=== PATIENT | male | born 1970 | race Caucasian/White ===

== ENCOUNTER 2017-08-05 09:30 | Emergency (ER) | payer OTHER ==
[~2017-08-05] VITALS: Ht 180.3 cm; Wt 102.1 kg
--- NOTE | 2017-08-05 10:26 | ED GI/GU/ABDOMINAL COMPLAINT ---
History of Present Illness General Chief Complaint: Chest Pain Stated Complaint: CP Source: patient, old records Exam Limitations: no limitations Vital Signs & Intake/Output Vital Signs & Intake/Output Vital Signs Date Time Temp Pulse Resp B/P B/P Pulse O2 O2 Flow FiO2 Mean Ox Delivery Rate 08/05 1400 98.7 64 18 136/86 97 Room Air 08/05 0947 99 Room Air 08/05 0934 96.9 65 18 150/90 99 Room Air Allergies Coded Allergies: NO KNOWN ALLERGIES (08/05/17) Triage Note: C/O CHEST PAIN IN CENTER OF CHEST WITH HEARTBURN AND VOMITING SINCE 299, WITH SOB. Triage Nurses Notes Reviewed? yes Onset: Morning Duration: hour(s):, constant, continues in ED Timing: recent history Quality/Severity: aching, moderate, severe, vomiting Location: epigastric Radiation: chest Activities at Onset: sleep Prior Abdominal Problems: similar symptoms Past Sexual History: Unobtainable at this time No Modifying Factors: none Associated Symptoms: abdominal pain, chest pain, diarrhea, loss of appetite, nausea/vomiting HPI: 4 hours prior to admission patient awoke with tight epigastric pain radiating to his chest associated with nausea vomiting diarrhea. He also had shortness of breath diaphoresis. He denies fever chills cough headache dysuria rash bleeding. He has had previous episodes but never this severe or prolonged. Past History Travel History Traveled to [place] past 21 day No Medical History Any Pertinent Medical History? see below for history EENT: NONE Cardiovascular: NONE Respiratory: asthma Gastrointestinal: NONE Hepatic: NONE Renal: NONE Musculoskeletal: NONE Psychiatric: NONE Endocrine: NONE Surgical History Surgical History: non-contributory Psychosocial History What is your primary language Azeri Tobacco Use: Current Not Daily ETOH Use: occasional use Family History Hx Contributory? No Review of Systems Review of Systems Constitutional: Reports: see HPI, diaphoresis. EENTM: Reports: no symptoms. Respiratory: Reports: no symptoms. Cardiovascular: Reports: see HPI, chest pain. GI: Reports: see HPI, abdominal pain, diarrhea, nausea, vomiting. Genitourinary: Reports: no symptoms. Musculoskeletal: Reports: no symptoms. Skin: Reports: no symptoms. Neurological/Psychological: Reports: no symptoms. Hematologic/Endocrine: Reports: no symptoms. Immunologic/Allergic: Reports: no symptoms. All Other Systems: Reviewed and Negative Physical Exam Physical Exam General Appearance: well developed/nourished, alert, awake, anxious, severe distress, obese Head: atraumatic, normal appearance Eyes: Bilateral: normal appearance, PERRL, EOMI, normal inspection. Ears, Nose, Throat, Mouth: hearing grossly normal, moist mucous membrane Neck: normal inspection, supple, full range of motion, normal alignment, no midline tenderness Respiratory: normal breath sounds, chest non-tender, no respiratory distress, quiet respiration, lungs clear Cardiovascular: regular rate/rhythm, normal peripheral pulses, norml femoral pulses equa Peripheral Pulses: 4+ carotid (R), 4+ carotid (L) Gastrointestinal: normal bowel sounds, soft, non-tender, no organomegaly Male Genitals: normal genitalia Back: normal inspection, normal range of motion, no vertebral tenderness Extremities: normal range of motion, no ligament instability Neurologic/Psych: no motor/sensory deficits, awake, alert, oriented x 3, normal gait, normal mood/affect, 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 No Sepsis Present: No Sepsis Focused Exam Completed? No Progress Differential Diagnosis: biliary colic, gastritis, pancreatitis, PUD/GERD Plan of Care: Orders Procedure Date/time Status TROPONIN LEVEL 08/05 1345 Complete RAPID VIRAL INFLUENZA A 08/05 1027 Complete TROPONIN LEVEL 08/05 0954 Complete MAGNESIUM 08/05 0954 Complete LIPASE 08/05 0954 Complete HIGH SENSITIVITY CRP 08/05 0954 Complete COMPREHENSIVE METABOLIC PANEL 08/05 0954 Complete CBC WITHOUT DIFFERENTIAL 08/05 0954 Complete EKG 08/05 0931 Active Laboratory Tests 08/05/17 1402: Troponin I < 0.01 08/05/17 1044: Anion Gap 13, Estimated GFR > 60, BUN/Creatinine Ratio 20.0, Glucose 133 H, Calcium 9.6, Magnesium 1.9, Total Bilirubin 1.2, AST 26, ALT 36, Alkaline Phosphatase 79, Troponin I < 0.01, C-React Prot High Sens 0.6 L, Total Protein 7.4, Albumin 4.6, Globulin 2.8, Albumin/Globulin Ratio 1.6, Lipase 69, CBC w Diff NO MAN DIFF REQ, RBC 6.13 H, MCV 85.3, MCH 28.4, MCHC 33.3, RDW 12.8, MPV 8.3, Gran % 86.3 H, Lymphocytes % 8.6 L, Monocytes % 3.5, Eosinophils % 1.4, Basophils % 0.2, Absolute Granulocytes 13.3 H, Absolute Lymphocytes 1.3, Absolute Monocytes 0.5, Absolute Eosinophils 0.2, Absolute Basophils 0 Microbiology 05/05 1031 NASOPHARYN: Influenza Virus A & B Rapid Smear - COMP Initial ED EKG: normal axis, normal intervals, normal p-waves, normal QRS complex, normal sinus rhythm, no ST T wave changes Rhythm Strip: normal sinus rhythm Departure Departure Time of Disposition: 1505 Disposition: HOME OR SELF CARE Condition: Stable Clinical Impression Primary Impression: Nausea, vomiting, and diarrhea Secondary Impressions: Abdominal pain Referrals: Tony Cloud MD (PCP/Family) Additional Instructions: Clear liquid diet in small amounts for 12-24 hours Departure Forms: Customer Survey General Discharge Information Prescriptions: Current Visit Scripts Ondansetron (Zofran Odt) 1 TAB SL TID PRN nausea vomiting #10 TAB Hyoscyamine Sulfate (Levsin-Sl) 1-2 TAB SL Q4P PRN abdominal cramps #30 TAB Loperamide HCl (Imodium A-D) 0 PO SEE ADMIN CRITERIA PRN diarrhea #24 TAB 1 tab after each loose stool up to 7 per day
[2017-08-05 10:53] LABS: ABSOLUTE BASOPHIL COUNT 0 /CUMM (0.0-0.2); ABSOLUTE EOSINOPHIL COUNT 0.2 /CUMM (0.0-0.7); ABSOLUTE GRANULOCYTE CT 13.3 /CUMM (1.4-6.5); ABSOLUTE LYMPH COUNT 1.3 /CUMM (1.2-3.4); ABSOLUTE MONOCYTE COUNT 0.5 /CUMM (0.10-0.60); BASOPHIL % 0.2 % (0.0-2.0); EOSINOPHIL % 1.4 % (0-5); HEMATOCRIT 52.3 % (42-52); MEAN CORPUSCULAR HGB 28.4 PG (27.0-31.0); MEAN CORPUSCULAR HGB CONC 33.3 G/DL (33.0-37.0); MEAN CORPUSCULAR VOLUME 85.3 FL (80.0-94.0); MEAN PLATELET VOLUME 8.3 FL (7.4-10.4); PLATELET COUNT 178 /CUMM (130-400); RBC DISTRIBUTION WIDTH 12.8 % (11.5-14.5); RED BLOOD CELL CT 6.13 /CUMM (4.70-6.10); WHITE BLOOD CELL COUNT 15.4 /CUMM (4.8-10.8)
[2017-08-05 11:24] LABS: GRANULOCYTE % 86.3 % (42.2-75.2)
[2017-08-05 14:00] VITALS: BP 136/86
[2017-08-05] MEDS ORDERED: LEVSIN-SL0.125 MG SL (15:08)
[2017-08-05] MEDS ORDERED: IMODIUM A-D2 M1 PO (15:08)
[2017-08-05] MEDS ORDERED: ZOFRAN ODT4 M1 SL (15:08)
[2017-08-12] MEDS ORDERED: PROTONIX40 M3 PO (01:17)
[2017-09-15] MEDS ORDERED: LEXAPRO20 M1 PO (15:46)
[2017-09-15] MEDS ORDERED: PROAIR HFA8.5 GM INH (15:46)
== END 2017-08-05 15:20 ==
LOC: ERH 09:30
PROVIDERS: Emergency Medicine
DX: R11.2 Nausea with vomiting, unspecified (principal); R19.7 Diarrhea, unspecified; R10.13 Epigastric pain; R07.9 Chest pain, unspecified
CPT/HCPCS: 87804; 87804-59; 93005; 93010; 96361; 96374; 96375; J0131; J2765

== ENCOUNTER → 2017-09-18 | Day surgery (SDC) | payer OTHER ==
[~2017-09-18] VITALS: Ht 180.3 cm; Wt 91.6 kg
[~2017-09-18] MED LIST: IMODIUM A-D2 M1 PO; LEVSIN-SL0.125 MG SL; LEXAPRO20 M1 PO; PROAIR HFA8.5 GM INH; PROTONIX40 M3 PO; ZOFRAN ODT4 M1 SL
--- NOTE | 2017-09-18 16:20 | Operative Report ---
Operative/Inv Procedure Report Surgery Date: 09/18/17 Name of Procedure: Laparoscopic cholecystectomy Pre-Operative Diagnosis: Biliary colic Post-Operative Diagnosis: Same Estimated Blood Loss: scant Surgeon/Customer Training Specialist: Guilherme SAVAGE,Sterling Mcnulty/Chanelle ADKINS Anesthesia: general endotracheal tube Specimens: gallbladder Operative/Procedure Note Note: After informed consent patient is brought to the operating room and laid supine. General anesthesia was obtained and his abdomen was prepped and draped. The skin above the umbilicus infiltrated with local anesthesia and a curvilinear incision made sharply. We came down through the subcutaneous tissues bluntly and grasped the fascia with [place]'s. A fasciotomy was created sharply and stay sutures placed. The peritoneum was entered sharply and a blunt Jensen port was placed. Pneumoperitoneum was achieved. 3, 5 mm ports were placed in the epigastrium and right upper quadrant after local anesthesia was instilled and under direct vision the camera. he's placed in reverse Trendelenburg and rotated towards the left. The gallbladder is identified. It was grasped at the dome and retracted towards the head. Infundibulum was then grasped. Adhesions to the undersurface were taken down with blunt and cautery dissection. We dissected both sides the triangle [place] peritoneal tissue with cautery. The artery was medial and its normal anatomic position. It was cauterized medially to allow it to be mobilized away from the duct. [place] was cleared of areolar tissue with cautery. The arteries and duct were doubly ligated with clips. Gallbladder is removed from the fossa electrocautery. It was placed in Endo Catch bag and cinched up. Right upper quadrant was and suction irrigated normal saline. Hemostasis achieved with cautery. The ports were then removed and the gallbladder delivered and passed off the field. The fascia was closed with 0 Vicryl suture. Skin incisions closed with 4-0 Vicryl. Steri-Strips and sterile dressing applied. Sponge and needle counts are correct. CC: Ai SAVAGE,Tony
== END ==
LOC: STS 01:12
DX: K80.10 Calculus of gallbladder with chronic cholecystitis without obstruction (principal); F17.290 Nicotine dependence, other tobacco product, uncomplicated
CPT/HCPCS: J0690; J2250; J3490